=== PATIENT | male | born 1985 | race Caucasian/White ===

== ENCOUNTER → 2017-08-03 12:13 | Outpatient (CLI) | payer MEDICAID, SELFPAY | PROVIDERS: Family Provider Family Medicine Geriatric Medicine; PCP Family Medicine Geriatric Medicine; Visit Provider Family Medicine Geriatric Medicine | DX: R68.83 Chills (without fever) (principal) | CPT/HCPCS: 87633 ==

== ENCOUNTER → 2018-10-02 14:02 | Outpatient (CLI) | payer MEDICAID, SELFPAY ==
[2018-10-02 17:25] LABS: Absolute Lymphocyte Count 2.66 X10^3/ul (0.83-4.51); Basophil# 0.02 X10^3/uL; Basophil% 0.2 % (0-1); Eosinophil# 0.18 X10^3/uL; Eosinophils% 2.2 % (0-5); Hematocrit 43.3 % (40-54); Hemoglobin 14.4 g/dl (13.0-16.5); Lymphocyte # 2.66 X10^3/ul (4.0); Mean Corp Hgb Conc 33.3 g/gl (32-36); Mean Corpuscular Hgb 28.3 pg (27.0-32.0); Mean Corpuscular Volume 85.2 fL (80-94); Mean Platelet Vol. 11.9 fl (6.2-12.0); Monocyte# 0.41 X10^3/uL; Monocyte% 4.9 % (0-10); Neutrophil # 5.04 X10^3/uL (2.7-7.7); Neutrophil % 60.6 % (47-70); Platelet Count 168 K/mm3 (150-450); RBC Distribution Width CV 14.6 % (11.6-14.6); RBC Distribution Width SD 45.6 fl (35.1-43.9); Red Blood Count 5.08 M/mm3 (4.6-6.2); White Blood Count 8.3 K/mm3 (4.4-11.0)
[2018-10-02 17:32] LABS: POSITIVE COUNT NO; POSITIVE DIFFERENTIAL NO; POSITIVE MORPHOLOGY NO
[2018-10-02 17:56] LABS: ALB/GLOB Ratio 1.1 RATIO (0.9-2.4); AST(SGOT) 20 U/L (15-37); Alanine Aminotransfer ALT/SGPT 30 U/L (16-61); Alkaline Phosphatase 100 U/L (45-117); Anion Gap 15 (5-15); BUN 8 mg/dL (7-18); BUN/Creat Ratio 8.2 RATIO (10-20); Chloride 102 mmol/L (98-107); Creatinine, Serum 0.97 mg/dL (0.70-1.30); EST Glomerular Filtration Rate 95 mL/min (>60); Est Glom Filt Rate - Afr Amer 115 mL/min (>60); Globulin 3.5 g/dL (2.2-4.2); Glucose 139 mg/dL (74-106); Potassium 3.7 mmol/L (3.5-5.1); Protein, Total 7.5 g/dL (6.4-8.2); Sodium Level 140 mmol/L (136-145)
== END ==
PROVIDERS: Family Provider Family Medicine Geriatric Medicine; PCP Family Medicine Geriatric Medicine; Visit Provider Family Medicine Geriatric Medicine
DX: R53.83 Other fatigue (principal)
CPT/HCPCS: 36415; 80053; 84443; 85025

== ENCOUNTER → 2018-11-08 15:00 | Outpatient (CLI) | payer MEDICAID, SELFPAY ==
[2018-11-08 16:55] LABS: Absolute Lymphocyte Count 2.16 X10^3/uL (0.83-4.51); Absolute Neutrophil Count 5.2 X10^3/uL (2.0-7.7); Basophil# 0.02 X10^3/uL; Basophil% 0.2 % (0-1); Eosinophil# 0.15 X10^3/uL; Eosinophils% 1.9 % (0-5); Hematocrit 45.3 % (40-54); Hemoglobin 14.4 g/dL (13.0-16.5); Lymphocyte # 2.16 X10^3/ul (4.0); Lymphocyte % 26.7 % (19-41); Mean Corp Hgb Conc 31.8 g/dL (32-36); Mean Corpuscular Hgb 28.1 pg (27.0-32.0); Mean Corpuscular Volume 88.5 fL (80-94); Mean Platelet Vol. 11.9 fl (6.2-12.0); Monocyte# 0.58 X10^3/uL; Monocyte% 7.2 % (0-10); NRBC Flagged by Analyzer 0 % (0-5); Neutrophil # 5.16 X10^3/uL (2.7-7.7); Neutrophil % 63.6 % (47-70); Platelet Count 212 K/mm3 (150-450); RBC Distribution Width CV 14.3 % (11.6-14.6); Red Blood Count 5.12 M/mm3 (4.6-6.2); White Blood Count 8.1 K/mm3 (4.4-11.0)
[2018-11-08 17:26] LABS: BUN 7 mg/dL (7-18); Creatinine, Serum 1.02 mg/dL (0.70-1.30); Glucose 71 mg/dL (74-106)
[2018-11-08 17:27] LABS: Anion Gap 10 (5-15); BUN/Creat Ratio 6.9 RATIO (10-20); Calcium,Total 9.4 mg/dL (8.5-10.1); Chloride 102 mmol/L (98-107); EST Glomerular Filtration Rate 90 mL/min (>60); Est Glom Filt Rate - Afr Amer 109 mL/min (>60); Potassium 3.6 mmol/L (3.5-5.1); Sodium Level 140 mmol/L (136-145); Thyroid Stim Hormone (TSH) 0.74 uIU/mL (0.358-3.74)
== END ==
PROVIDERS: Family Provider Family Medicine Geriatric Medicine; PCP Family Medicine Geriatric Medicine; Visit Provider Family Medicine Geriatric Medicine
DX: F05 Delirium due to known physiological condition (principal)
CPT/HCPCS: 36415; 80048; 84443; 85025

== ENCOUNTER → 2019-04-11 15:26 | Outpatient (CLI) | payer MEDICAID, SELFPAY ==
[2019-04-11 17:23] LABS: Absolute Lymphocyte Count 2.26 X10^3/uL (0.83-4.51); Absolute Neutrophil Count 4.3 X10^3/uL (2.0-7.7); Basophil# 0.04 X10^3/uL; Basophil% 0.5 % (0-1); Eosinophil# 0.21 X10^3/uL; Eosinophils% 2.9 % (0-5); Hematocrit 46.6 % (40-54); Hemoglobin 15.3 g/dL (13.0-16.5); Lymphocyte # 2.26 X10^3/ul (4.0); Lymphocyte % 30.9 % (19-41); Mean Corp Hgb Conc 32.8 g/dL (32-36); Mean Corpuscular Hgb 30.5 pg (27.0-32.0); Mean Platelet Vol. 11.6 fl (6.2-12.0); Monocyte# 0.54 X10^3/uL; Monocyte% 7.4 % (0-10); NRBC Flagged by Analyzer 0 % (0-5); Neutrophil # 4.26 X10^3/uL (2.7-7.7); Neutrophil % 58.2 % (47-70); Platelet Count 200 K/mm3 (150-450); RBC Distribution Width CV 12.5 % (11.6-14.6); RBC Distribution Width SD 42.6 fl (35.1-43.9); Red Blood Count 5.01 M/mm3 (4.6-6.2); White Blood Count 7.3 K/mm3 (4.4-11.0)
[2019-04-11 18:01] LABS: ALB/GLOB Ratio 1.2 RATIO (0.9-2.4); AST(SGOT) 13 U/L (15-37); Alanine Aminotransfer ALT/SGPT 23 U/L (16-61); Albumin, Serum 4.3 g/dL (3.2-5.0); Alkaline Phosphatase 99 U/L (45-117); Anion Gap 5 (5-15); BUN 9 mg/dL (7-18); BUN/Creat Ratio 8.6 RATIO (10-20); Calcium,Total 9.1 mg/dL (8.5-10.1); Chloride 104 mmol/L (98-107); Creatinine, Serum 1.05 mg/dL (0.70-1.30); EST Glomerular Filtration Rate 87 mL/min (>60); Est Glom Filt Rate - Afr Amer 105 mL/min (>60); Globulin 3.6 g/dL (2.2-4.2); Glucose 81 mg/dL (74-106); Potassium 4.3 mmol/L (3.5-5.1); Protein, Total 7.9 g/dL (6.4-8.2); Sodium Level 136 mmol/L (136-145); Thyroid Stim Hormone (TSH) 1.51 uIU/mL (0.358-3.74)
== END ==
PROVIDERS: Family Provider Family Medicine Geriatric Medicine; PCP Family Medicine Geriatric Medicine; Visit Provider Family Medicine Geriatric Medicine
DX: R53.83 Other fatigue (principal)
CPT/HCPCS: 36415; 80053; 80178; 84443; 85025

== ENCOUNTER → 2019-10-10 14:41 | Outpatient (CLI) | payer MEDICAID, SELFPAY ==
[2019-10-10 16:11] LABS: Absolute Lymphocyte Count 1.97 X10^3/uL (0.83-4.51); Absolute Neutrophil Count 4.2 X10^3/uL (2.0-7.7); Basophil# 0.04 X10^3/uL; Basophil% 0.6 % (0-1); Eosinophil# 0.28 X10^3/uL; Eosinophils% 3.9 % (0-5); Hematocrit 45.1 % (40-54); Hemoglobin 14.5 g/dL (13.0-16.5); Lymphocyte # 1.97 X10^3/ul (4.0); Lymphocyte % 27.4 % (19-41); Mean Corp Hgb Conc 32.2 g/dL (32-36); Mean Corpuscular Hgb 30.4 pg (27.0-32.0); Mean Corpuscular Volume 94.5 fL (80-94); Mean Platelet Vol. 11.1 fl (6.2-12.0); Monocyte# 0.64 X10^3/uL; Monocyte% 8.9 % (0-10); NRBC Flagged by Analyzer 0 % (0-5); Neutrophil # 4.23 X10^3/uL (2.7-7.7); Neutrophil % 58.9 % (47-70); Platelet Count 196 K/mm3 (150-450); RBC Distribution Width CV 12.8 % (11.6-14.6); RBC Distribution Width SD 44.1 fl (35.1-43.9); Red Blood Count 4.77 M/mm3 (4.6-6.2); White Blood Count 7.2 K/mm3 (4.4-11.0)
[2019-10-10 16:54] LABS: AST(SGOT) 17 U/L (15-37); Alanine Aminotransfer ALT/SGPT 38 U/L (16-61); Albumin, Serum 3.7 g/dL (3.2-5.0); Alkaline Phosphatase 90 U/L (45-117); Anion Gap 6 (5-15); BUN 11 mg/dL (7-18); BUN/Creat Ratio 11.6 RATIO (10-20); Calcium,Total 8.6 mg/dL (8.5-10.1); Chloride 104 mmol/L (98-107); Creatinine, Serum 0.95 mg/dL (0.70-1.30); EST Glomerular Filtration Rate 97 mL/min (>60); Est Glom Filt Rate - Afr Amer 118 mL/min (>60); Globulin 3.7 g/dL (2.2-4.2); Glucose 113 mg/dL (74-106); Protein, Total 7.4 g/dL (6.4-8.2); Sodium Level 137 mmol/L (136-145)
== END ==
PROVIDERS: PCP Family Medicine Geriatric Medicine; Visit Provider Family Medicine Geriatric Medicine
DX: R53.83 Other fatigue (principal); F31.9 Bipolar disorder, unspecified
CPT/HCPCS: 36415; 80053; 80178; 84443; 85025

== ENCOUNTER → 2020-04-28 05:01 | Outpatient (CLI) | payer MEDICAID, SELFPAY ==
[2020-04-28 10:35] LABS: Absolute Lymphocyte Count 2.48 X10^3/uL (0.83-4.51); Absolute Neutrophil Count 5.5 X10^3/uL (2.0-7.7); Basophil# 0.04 X10^3/uL; Basophil% 0.4 % (0-1); Eosinophil# 0.39 X10^3/uL; Eosinophils% 4.3 % (0-5); Hematocrit 47.8 % (40-54); Hemoglobin 15.6 g/dL (13.0-16.5); Lymphocyte # 2.48 X10^3/ul (4.0); Lymphocyte % 27.3 % (19-41); Mean Corp Hgb Conc 32.6 g/dL (32-36); Mean Corpuscular Hgb 29.9 pg (27.0-32.0); Mean Corpuscular Volume 91.6 fL (80-94); Mean Platelet Vol. 11.4 fl (6.2-12.0); Monocyte# 0.59 X10^3/uL; Monocyte% 6.5 % (0-10); NRBC Flagged by Analyzer 0 % (0-5); Neutrophil # 5.53 X10^3/uL (2.7-7.7); Neutrophil % 61.1 % (47-70); Platelet Count 237 K/mm3 (150-450); RBC Distribution Width CV 13.2 % (11.6-14.6); RBC Distribution Width SD 44.9 fl (35.1-43.9); Red Blood Count 5.22 M/mm3 (4.6-6.2); White Blood Count 9.1 K/mm3 (4.4-11.0)
[2020-04-28 11:06] LABS: Vitamin D,25 Hydroxy 22.4 ng/mL
[2020-04-28 11:18] LABS: ALB/GLOB Ratio 1.1 RATIO (0.9-2.4); AST(SGOT) 16 U/L (15-37); Alanine Aminotransfer ALT/SGPT 36 U/L (16-61); Alkaline Phosphatase 107 U/L (45-117); Anion Gap 4 (5-15); BUN 6 mg/dL (7-18); BUN/Creat Ratio 6.2 RATIO (10-20); Calcium,Total 9.4 mg/dL (8.5-10.1); Chloride 109 mmol/L (98-107); Cholesterol 325 mg/dL (200); Creatinine, Serum 0.97 mg/dL (0.70-1.30); EST Glomerular Filtration Rate 95 mL/min (>60); Est Glom Filt Rate - Afr Amer 115 mL/min (>60); Globulin 3.8 g/dL (2.2-4.2); Glucose 118 mg/dL (74-106); High Density Lipoprotein 40 mg/dL; Potassium 4.2 mmol/L (3.5-5.1); Protein, Total 7.8 g/dL (6.4-8.2); Sodium Level 138 mmol/L (136-145); Thyroid Stim Hormone (TSH) 1.31 uIU/mL (0.358-3.74); Triglycerides 516 mg/dL
== END ==
PROVIDERS: PCP Family Medicine Geriatric Medicine; Visit Provider Family Medicine Geriatric Medicine
DX: E55.9 Vitamin D deficiency, unspecified (principal); E78.5 Hyperlipidemia, unspecified; R53.83 Other fatigue
CPT/HCPCS: 36415; 80053; 80061; 82306; 84443; 85025

== ENCOUNTER → 2020-10-15 10:10 | Outpatient (CLI) | payer MEDICAID, SELFPAY ==
[2020-10-15 12:27] LABS: Absolute Lymphocyte Count 2.71 X10^3/uL (0.83-4.51); Basophil# 0.05 X10^3/uL; Basophil% 0.4 % (0-1); Eosinophil# 0.25 X10^3/uL; Eosinophils% 1.8 % (0-5); Hematocrit 49.2 % (40-54); Hemoglobin 15.9 g/dL (13.0-16.5); Lymphocyte # 2.71 X10^3/ul (0.83-4.51); Lymphocyte % 19.5 % (19-41); Mean Corp Hgb Conc 32.3 g/dL (32-36); Mean Corpuscular Hgb 29.9 pg (27.0-32.0); Mean Corpuscular Volume 92.7 fL (80-94); Mean Platelet Vol. 11.6 fl (6.2-12.0); Monocyte# 0.83 X10^3/uL; NRBC Flagged by Analyzer 0 % (0-5); Neutrophil % 71.9 % (47-70); Platelet Count 219 K/mm3 (150-450); RBC Distribution Width CV 13.1 % (11.6-14.6); RBC Distribution Width SD 44.9 fl (35.1-43.9); Red Blood Count 5.31 M/mm3 (4.6-6.2); White Blood Count 13.9 K/mm3 (4.4-11.0)
[2020-10-15 12:45] LABS: ALB/GLOB Ratio 1.1 RATIO (0.9-2.4); AST(SGOT) 13 U/L (15-37); Alanine Aminotransfer ALT/SGPT 24 U/L (16-61); Albumin, Serum 4.2 g/dL (3.2-5.0); Alkaline Phosphatase 116 U/L (45-117); Anion Gap 2 (5-15); BUN 8 mg/dL (7-18); BUN/Creat Ratio 8.2 RATIO (10-20); Calcium,Total 9.7 mg/dL (8.5-10.1); Chloride 105 mmol/L (98-107); Creatinine, Serum 0.98 mg/dL (0.70-1.30); EST Glomerular Filtration Rate 93 mL/min (>60); Est Glom Filt Rate - Afr Amer 113 mL/min (>60); Globulin 3.7 g/dL (2.2-4.2); Glucose 112 mg/dL (74-106); Potassium 4.5 mmol/L (3.5-5.1); Protein, Total 7.9 g/dL (6.4-8.2); Sodium Level 135 mmol/L (136-145); Thyroid Stim Hormone (TSH) 1.61 uIU/mL (0.358-3.74)
== END ==
PROVIDERS: PCP Family Medicine Geriatric Medicine; Visit Provider Family Medicine Geriatric Medicine
DX: R53.83 Other fatigue (principal)
CPT/HCPCS: 36415; 80053; 84443; 85025

== ENCOUNTER 2021-05-04 10:14 | Outpatient (CLI) | payer MEDICAID, SELFPAY ==
--- NOTE | 2021-05-04 12:03 | RAD_ITS ---
STUDY: X-RAY - UNILATERAL RIBS ( LEFT ) WITH CHEST REASON FOR EXAM: Male, 35 years old. RIB PAIN TECHNIQUE - RIBS: 4 view(s) of the ribs. TECHNIQUE - CHEST: COMPARISON: None. FINDINGS - RIBS: Normal visualized ribs without a demonstrated fracture. FINDINGS - CHEST: Scattered calcified granulomas. There is no demonstrated pleural abnormality. Normal size heart. Normal mediastinum and jose. Normal visualized pulmonary arteries. Normal visualized aortic arch and descending thoracic aorta. There is a mild dextroscoliosis of the thoracic spine. Normal visualized ribs, clavicles, and shoulders. There is no demonstrated abnormality of the visualized soft tissue structures of the upper abdomen. RAD/Ribs Uni Min 3V w/PA Chest IMPRESSION: RIBS: Normal x-ray examination of the ribs. CHEST: Normal x-ray examination of the chest. Electronically Signed: Herminio Montalvo MD at 15:16 EST ,
[2021-05-04 12:30] LABS: Absolute Lymphocyte Count 2.65 X10^3/uL (0.83-4.51); Absolute Neutrophil Count 4.4 X10^3/uL (2.0-7.7); Basophil# 0.04 X10^3/uL; Basophil% 0.5 % (0-1); Eosinophil# 0.28 X10^3/uL; Eosinophils% 3.5 % (0-5); Hematocrit 45.7 % (40-54); Hemoglobin 14.7 g/dL (13.0-16.5); Lymphocyte # 2.65 X10^3/ul (0.83-4.51); Lymphocyte % 33.1 % (19-41); Mean Corp Hgb Conc 32.2 g/dL (32-36); Mean Corpuscular Hgb 30.1 pg (27.0-32.0); Mean Corpuscular Volume 93.5 fL (80-94); Mean Platelet Vol. 11.5 fl (6.2-12.0); Monocyte# 0.65 X10^3/uL; Monocyte% 8.1 % (0-10); NRBC Flagged by Analyzer 0 % (0-5); Neutrophil # 4.37 X10^3/uL (2.7-7.7); Neutrophil % 54.6 % (47-70); Platelet Count 212 K/mm3 (150-450); RBC Distribution Width CV 12.9 % (11.6-14.6); RBC Distribution Width SD 44.5 fl (35.1-43.9); Red Blood Count 4.89 M/mm3 (4.6-6.2)
[2021-05-04 13:17] LABS: ALB/GLOB Ratio 1.2 RATIO (0.9-2.4); AST(SGOT) 12 U/L (15-37); Alanine Aminotransfer ALT/SGPT 25 U/L (16-61); Albumin, Serum 4.3 g/dL (3.2-5.0); Alkaline Phosphatase 99 U/L (45-117); Anion Gap 7 (5-15); BUN 12 mg/dL (7-18); Calcium,Total 9.9 mg/dL (8.5-10.1); Chloride 106 mmol/L (98-107); EST Glomerular Filtration Rate 91 mL/min (>60); Est Glom Filt Rate - Afr Amer 110 mL/min (>60); Globulin 3.7 g/dL (2.2-4.2); Glucose 91 mg/dL (74-106); Sodium Level 137 mmol/L (136-145); Thyroid Stim Hormone (TSH) 2.14 uIU/mL (0.358-3.74)
== END 2021-05-04 23:59 | disposition short-term general hospital (02) ==
PROVIDERS: PCP Family Medicine Geriatric Medicine; Visit Provider Family Medicine Geriatric Medicine
DX: R07.81 Pleurodynia (principal); R53.83 Other fatigue
CPT/HCPCS: 36415; 71101; 80053; 84443; 85025

== ENCOUNTER → 2021-10-19 | Outpatient (CLI) | payer MEDICAID, SELFPAY ==
[2021-10-19 12:29] LABS: Absolute Lymphocyte Count 2.86 X10^3/uL (0.83-4.51); Absolute Neutrophil Count 5.9 X10^3/uL (2.0-7.7); Basophil# 0.04 X10^3/uL; Basophil% 0.4 % (0-1); Eosinophil# 0.32 X10^3/uL; Eosinophils% 3.2 % (0-5); Hematocrit 48.2 % (40-54); Hemoglobin 15.6 g/dL (13.0-16.5); Lymphocyte # 2.86 X10^3/ul (0.83-4.51); Lymphocyte % 28.9 % (19-41); Mean Corp Hgb Conc 32.4 g/dL (32-36); Mean Corpuscular Hgb 30.4 pg (27.0-32.0); Mean Corpuscular Volume 93.8 fL (80-94); Mean Platelet Vol. 11.3 fl (6.2-12.0); Monocyte# 0.69 X10^3/uL; NRBC Flagged by Analyzer 0 % (0-5); Neutrophil # 5.94 X10^3/uL (2.7-7.7); Neutrophil % 60.1 % (47-70); Platelet Count 194 K/mm3 (150-450); RBC Distribution Width CV 12.8 % (11.6-14.6); RBC Distribution Width SD 44.4 fl (35.1-43.9); Red Blood Count 5.14 M/mm3 (4.6-6.2); White Blood Count 9.9 K/mm3 (4.4-11.0)
[2021-10-19 13:39] LABS: ALB/GLOB Ratio 1.1 RATIO (0.9-2.4); AST(SGOT) 16 U/L (15-37); Alanine Aminotransfer ALT/SGPT 33 U/L (16-61); Alkaline Phosphatase 102 U/L (45-117); Anion Gap 5 (5-15); BUN 9 mg/dL (7-18); Calcium,Total 9.8 mg/dL (8.5-10.1); Chloride 105 mmol/L (98-107); EST Glomerular Filtration Rate 91 mL/min (>60); Est Glom Filt Rate - Afr Amer 110 mL/min (>60); Globulin 3.5 g/dL (2.2-4.2); Glucose 103 mg/dL (74-106); Potassium 4.8 mmol/L (3.5-5.1); Protein, Total 7.5 g/dL (6.4-8.2); Sodium Level 137 mmol/L (136-145); Thyroid Stim Hormone (TSH) 2.16 uIU/mL (0.358-3.74)
== END | disposition home or self-care (01) ==
LOC: POLAB3 09:56
PROVIDERS: PCP Family Medicine Geriatric Medicine; Visit Provider Family Medicine Geriatric Medicine
DX: R53.83 Other fatigue (principal)
CPT/HCPCS: 36415; 80053; 84443; 85025

== ENCOUNTER → 2022-05-03 | Outpatient (CLI) | payer MEDICAID, SELFPAY ==
[2022-05-03 13:20] LABS: Absolute Lymphocyte Count 1.16 X10^3/uL (0.83-4.51); Absolute Neutrophil Count 5.6 X10^3/uL (2.0-7.7); Basophil# 0.03 X10^3/uL; Basophil% 0.4 % (0-1); Eosinophil# 0.09 X10^3/uL; Eosinophils% 1.2 % (0-5); Hematocrit 49.2 % (40-54); Hemoglobin 16.2 g/dL (13.0-16.5); Lymphocyte # 1.16 X10^3/ul (0.83-4.51); Mean Corp Hgb Conc 32.9 g/dL (32-36); Mean Corpuscular Hgb 29.7 pg (27.0-32.0); Mean Corpuscular Volume 90.1 fL (80-94); Mean Platelet Vol. 12.1 fl (6.2-12.0); Monocyte% 5.5 % (0-10); NRBC Flagged by Analyzer 0 % (0-5); Neutrophil # 5.56 X10^3/uL (2.7-7.7); Neutrophil % 76.5 % (47-70); Platelet Count 186 K/mm3 (150-450); RBC Distribution Width SD 42.5 fl (35.1-43.9); Red Blood Count 5.46 M/mm3 (4.6-6.2); White Blood Count 7.3 K/mm3 (4.4-11.0)
[2022-05-03 13:43] LABS: ALB/GLOB Ratio 1.2 RATIO (0.9-2.4); AST(SGOT) 13 U/L (15-37); Alanine Aminotransfer ALT/SGPT 18 U/L (16-61); Albumin, Serum 4.3 g/dL (3.2-5.0); Alkaline Phosphatase 100 U/L (45-117); Anion Gap 7 (5-15); BUN 11 mg/dL (7-18); Calcium,Total 9.6 mg/dL (8.5-10.1); Chloride 105 mmol/L (98-107); Creatinine, Serum 0.92 mg/dL (0.70-1.30); EST Glomerular Filtration Rate 100 mL/min (>60); Est Glom Filt Rate - Afr Amer 121 mL/min (>60); Globulin 3.5 g/dL (2.2-4.2); Glucose 123 mg/dL (74-106); Potassium 4.1 mmol/L (3.5-5.1); Protein, Total 7.8 g/dL (6.4-8.2); Sodium Level 135 mmol/L (136-145); Thyroid Stim Hormone (TSH) 3.19 uIU/mL (0.358-3.74)
== END | disposition home or self-care (01) ==
LOC: POLAB3 09:29
PROVIDERS: PCP Family Medicine Geriatric Medicine; Visit Provider Family Medicine Geriatric Medicine
DX: R53.83 Other fatigue (principal)
CPT/HCPCS: 36415; 80053; 84443; 85025

== ENCOUNTER → 2022-11-02 | Outpatient (CLI) | payer MEDICAID, SELFPAY ==
[2022-11-02 12:18] LABS: Absolute Lymphocyte Count 2.33 X10^3/uL (0.83-4.51); Absolute Neutrophil Count 4.1 X10^3/uL (2.0-7.7); Basophil# 0.05 X10^3/uL; Basophil% 0.7 % (0-1); Eosinophil# 0.25 X10^3/uL; Eosinophils% 3.4 % (0-5); Hematocrit 46.3 % (40-54); Hemoglobin 14.9 g/dL (13.0-16.5); Lymphocyte # 2.33 X10^3/ul (0.83-4.51); Lymphocyte % 31.6 % (19-41); Mean Corp Hgb Conc 32.2 g/dL (32-36); Mean Corpuscular Hgb 29.9 pg (27.0-32.0); Mean Corpuscular Volume 92.8 fL (80-94); Mean Platelet Vol. 11.9 fl (6.2-12.0); Monocyte# 0.63 X10^3/uL; Monocyte% 8.5 % (0-10); NRBC Flagged by Analyzer 0 % (0-5); Neutrophil # 4.06 X10^3/uL (2.7-7.7); Neutrophil % 55.1 % (47-70); Platelet Count 193 K/mm3 (150-450); RBC Distribution Width CV 12.9 % (11.6-14.6); RBC Distribution Width SD 43.8 fl (35.1-43.9); Red Blood Count 4.99 M/mm3 (4.6-6.2); White Blood Count 7.4 K/mm3 (4.4-11.0)
[2022-11-02 12:45] LABS: ALB/GLOB Ratio 1.1 RATIO (0.9-2.4); AST(SGOT) 8 U/L (15-37); Alanine Aminotransfer ALT/SGPT 18 U/L (16-61); Albumin, Serum 3.7 g/dL (3.2-5.0); Alkaline Phosphatase 99 U/L (45-117); Anion Gap 5 (5-15); BUN 7 mg/dL (7-18); Chloride 109 mmol/L (98-107); Cholesterol 240 mg/dL (200); EST Glomerular Filtration Rate 90 mL/min (>60); Est Glom Filt Rate - Afr Amer 109 mL/min (>60); Globulin 3.3 g/dL (2.2-4.2); Glucose 118 mg/dL (74-106); High Density Lipoprotein 45 mg/dL; Sodium Level 138 mmol/L (136-145); Thyroid Stim Hormone (TSH) 1.35 uIU/mL (0.358-3.74); Triglycerides 287 mg/dL; Very Low Density Lipoprotein 57 mg/dL (5-40)
[2022-11-02 13:12] LABS: Hepatitis C Antibody Non-Reactive (Nonreactive)
== END | disposition home or self-care (01) ==
PROVIDERS: PCP Family Medicine Geriatric Medicine; Visit Provider Family Medicine Geriatric Medicine
DX: R53.83 Other fatigue (principal)
CPT/HCPCS: 36415; 80053; 80061; 84443; 85025; 86803

== ENCOUNTER → 2023-04-13 | Outpatient (CLI) | payer MEDICAID, SELFPAY ==
--- OUTSIDE RECORDS SUMMARY | 2023-04-13 09:13 | XMS RPT_ITS | CCD ---
Author Name Unknown Address [address] [place] [address] Organization [facility] Care Team Providers Care Shipper/Receiver Name Role Phone Neisha Novoa Unavailable Unavailable DENI COLE (MEL) Unavailable Unavai Neisha Nelson Unavailable Unavailable Medications Completed/Discontinued Medications Medication Drug Class(es) Dates Sig (Normalized) Sig (Original) AMOXICILLIN-POT CLAVULANATE (2 sources) Penicillin-class Antibacterial Start: 09-01-2016 AUGMENTIN 875-125 MG TABS 1 tablet twice daily AMOXICILLIN-POT CLAVULANATE [id number] Jose L HUNTER Problems Active Problems Problem Classification Problem Date Documented Da te Episodic/Chronic Other lower respiratory disease (1 source) Cough; Translations: [Cough] Onset: 02-15-2018 Episodic Other lower respiratory disease (1 source) Shortness of breath; Translations: [Shortness of breath] Onset: 02-15-2018 Episodic Other screening for suspected conditions (not mental disorders or infectious disease) (1 source) No current problems or disability 09-01-2016 Past or Other Problems Problem Classification Problem Date Documented Da te Episodic/Chronic Chronic obstructive pulmonary disease and bronchiectasis (1 source) Bronchitis; Translations: [Bronchitis, not specified as acute or chronic] Onset: 09-01-2016 09-01-2016 Episodic Other lower respiratory disease (1 source) Cough; Translations: [Cough] Onset: 09-01-2016 09-01-2016 Episodic Results Test Name Value Interpretation Reference Range Facil ity Vital Signs Date Time Vital Sign Value Performing Clinician Faci lity 09-01-2016 10:04-0400 BMI (Body Mass Index) 34.31 kg/m2 Neisha [facility] Work Phone: 09-01-2016 10:04-0400 Body Temperature 99.5 [degF] Neisha [facility] Work Phone: 09-01-2016 10:04-0400 BP Diastolic 84 mm[Hg] Neisha Novoa [facility] Work Phone: 09-01-2016 10:04-0400 BP Systolic 122 mm[Hg] Neisha Novoa [facility] Work Phone: 09-01-2016 10:04-0400 Height 167.64 cm Neisha [facility] Work Phone: 09-01-2016 10:04-0400 Pulse (Heart Rate) 87 /min Neisha Novoa [facility] Work Phone: 09-01-2016 10:04-0400 Pulse Oximetry 97 % Neisha Novoa [facility] Work Phone: 09-01-2016 10:04-0400 Respiratory Rate 16 /min Neisha [facility] Work Phone: 09-01-2016 10:04-0400 Weight 96.44 kg Neisha Novoa [facility] Work Phone: Encounters Encounter Date Encounter Type Care Provider Facility Start: 02-15-2018 End: 02-16-2018 Patient encounter procedure DENI COLE [facility] Procedures Date Procedure Procedure Detail Performing Clinician Start: 09-01-2016 End: 09-01-2016 Albuterol Neb Lela'n Unit Dose Jose L HUNTER Work Phone: Plan of Treatment Date Care Activity Detail Author Start: 09-01-2016 End: 09-01-2016 Appointment Appointment [facility] Work Phone: Start: 09-01-2016 End: 09-01-2016 Appointment Appointment [facility] Work Phone: Summary Purpose Family History No Family History Records Found Advance Directives No Advanced Directives Records Found Additional Source Comments (unrecognized sect ion and content) No Status Records Found INFORMATION SOURCE (unrecogn ized section and content) FOR RECORDS PERTAINING TO PATIENTS WHO ARE OR HAVE BEEN ENROLLED IN A CHEMICAL DEPENDENCY/SUBSTANCEABUSE PROGRAM, SOME INFORMATION MAY BE OMITTED. This clinical summary was aggregated from multiple sources. Caution should be exercised in using it in the provision of clinical care. This summary normalizes information from multiple sources, and as a consequence, information in this document may materially change the coding, format and clinical context of patient data. In addition, data may be omitted in some cases. CLINICAL DECISIONS SHOULD BE BASED ON THE PRIMARY CLINICAL RECORDS. [facility] [employer] [facility]. provides no warranty or guarantee of the accuracy or completeness of information in this document.
== END | disposition home or self-care (01) ==
PROVIDERS: PCP Family Medicine Geriatric Medicine; Referring Provider Student in an Organized Health Care Education/Training Program; Visit Provider Student in an Organized Health Care Education/Training Program
DX: F25.9 Schizoaffective disorder, unspecified (principal); Z51.81 Encounter for therapeutic drug level monitoring
CPT/HCPCS: 36415; 80178

== ENCOUNTER → 2023-05-04 | Outpatient (CLI) | payer MEDICAID, SELFPAY ==
--- OUTSIDE RECORDS SUMMARY | 2023-05-04 09:41 | XMS RPT_ITS | CCD ---
Author Name Unknown Address [address] [place] [address] Organization [facility] Care Team Providers Care Iron Carrier Name Role Phone Neisha Novoa Unavailable Unavailable DENI COLE (MEL) Unavailable Unavai Neisha Nelson Unavailable Unavailable Medications Completed/Discontinued Medications Medication Drug Class(es) Dates Sig (Normalized) Sig (Original) AMOXICILLIN-POT CLAVULANATE (2 sources) Penicillin-class Antibacterial Start: 09-01-2016 AUGMENTIN 875-125 MG TABS 1 tablet twice daily AMOXICILLIN-POT CLAVULANATE [id number] Jose L HUNTER Problems Active Problems Problem [...] 10:04-0400 BP Diastolic 84 mm[Hg] Neisha Novoa [facility] Work Phone: 09-01-2016 10:04-0400 BP Systolic 122 mm[Hg] Neisha Novoa [facility] Work Phone: 09-01-2016 10:04-0400 Height 167.64 cm Neisha [facility] Work Phone: 09-01-2016 10:04-0400 Pulse (Heart Rate) 87 /min Neisha Novoa [facility] Work Phone: 09-01-2016 10:04-0400 Pulse Oximetry 97 % Neisha Novoa [facility] Work Phone: 09-01-2016 10:04-0400 Respiratory Rate 16 /min [facility] Work Phone: 09-01-2016 10:04-0400 Weight 96.44 kg Neisha Novoa [facility] Work Phone: Encounters Encounter Date Encounter Type Care Provider Facility Start: 02-15-2018 End: 02-16-2018 Patient encounter procedure DENI COLE [facility] Procedures Date Procedure Procedure Detail Performing Clinician Start: 09-01-2016 End: 09-01-2016 Albuterol Neb Lela'n Unit Dose Jose L HUNTER Work Phone: Plan of Treatment Date Care Activity Detail Author Start: 09-01-2016 End: 09-01-2016 Appointment Appointment [facility] Work Phone: Start: 09-01-2016 End: 09-01-2016 Appointment Appointment [facility] Work Phone: Summary Purpose [...] BE BASED ON THE PRIMARY CLINICAL RECORDS. [facility]. provides no warranty or guarantee of the accuracy or completeness of information in this document.
[2023-05-04 10:09] LABS: Absolute Neutrophil Count 6.7 X10^3/uL (2.0-7.7); Basophil# 0.07 X10^3/uL; Basophil% 0.7 % (0-1); Eosinophil# 0.28 X10^3/uL; Eosinophils% 2.8 % (0-5); Hemoglobin 14.5 g/dL (13.0-16.5); Lymphocyte % 23.7 % (19-41); Mean Corpuscular Hgb 29.6 pg (27.0-32.0); Mean Corpuscular Volume 89.8 fL (80-94); Mean Platelet Vol. 11.3 fl (6.2-12.0); Monocyte# 0.67 X10^3/uL; Monocyte% 6.6 % (0-10); NRBC Flagged by Analyzer 0 % (0-5); Neutrophil # 6.67 X10^3/uL (2.7-7.7); Neutrophil % 65.8 % (47-70); Platelet Count 183 K/mm3 (150-450); RBC Distribution Width CV 13.1 % (11.6-14.6); RBC Distribution Width SD 42.8 fl (35.1-43.9); White Blood Count 10.1 K/mm3 (4.4-11.0)
[2023-05-04 10:36] LABS: AST(SGOT) 17 U/L (15-37); Alanine Aminotransfer ALT/SGPT 28 U/L (16-61); Albumin, Serum 3.6 g/dL (3.2-5.0); Alkaline Phosphatase 106 U/L (45-117); Anion Gap 4 (5-15); BUN 10 mg/dL (7-18); BUN/Creat Ratio 8.8 RATIO (10-20); Calcium,Total 9.2 mg/dL (8.5-10.1); Chloride 105 mmol/L (98-107); Cholesterol 267 mg/dL (200); Creatinine, Serum 1.14 mg/dL (0.70-1.30); EST Glomerular Filtration Rate 77 mL/min (>60); Est Glom Filt Rate - Afr Amer 93 mL/min (>60); Globulin 3.5 g/dL (2.2-4.2); Glucose 217 mg/dL (74-106); High Density Lipoprotein 40 mg/dL; Potassium 3.7 mmol/L (3.5-5.1); Protein, Total 7.1 g/dL (6.4-8.2); Sodium Level 135 mmol/L (136-145); Thyroid Stim Hormone (TSH) 1.67 uIU/mL (0.358-3.74); Triglycerides 508 mg/dL
== END | disposition home or self-care (01) ==
LOC: POLAB3 09:13
PROVIDERS: PCP Family Medicine Geriatric Medicine; Visit Provider Family Medicine Geriatric Medicine
DX: R53.83 Other fatigue (principal); E78.5 Hyperlipidemia, unspecified
CPT/HCPCS: 36415; 80053; 80061; 84443; 85025

== ENCOUNTER 2023-10-14 21:22 | Emergency (ER) | payer MEDICAID, SELFPAY ==
[2023-10-14 21:23] VITALS: BP 124/73; PULSE 80; RESP 14; TEMP 35.8; O2SAT 98; BMI 35.3
--- NOTE | 2023-10-14 21:57 | EDS_ITS ---
HPI History of Present Illness Chief Complaint: Abscess [facility] Medical History Arthritis Medication monitoring encounter Schizoaffective disorder Home Medications ?Medication ?Instructions ?Recorded ?Last Taken ?Type ascorbic acid (vitamin C) 500 mg PO 01/18/23 Unknown History tablet clonidine HCl 0.1 mg tablet mg PO DAILY 01/18/23 Unknown History clonidine HCl 0.2 mg tablet mg PO BID 01/18/23 Unknown History docusate sodium 100 mg capsule mg PO 01/18/23 Unknown History famotidine 40 mg tablet 40 mg PO DAILY 01/18/23 Unknown History fluticasone propionate 50 intranasal 01/18/23 Unknown History mcg/actuation nasal spray,suspension gabapentin 300 mg capsule mg PO 01/18/23 Unknown History loratadine 10 mg tablet mg PO 01/18/23 Unknown History multivitamin with folic acid 400 tab PO 01/18/23 Unknown History mcg tablet (Daily-Alfonzo (with folic acid)) omega-3 fatty acids 1,000 mg mg PO 01/18/23 Unknown History capsule omega3-dha 200 mg-epa 300 mg-othr cap PO DAILY 01/18/23 Unknown History om3 100 mg-fish oil 1,000 mg capsule ([place]) omeprazole 20 mg capsule,delayed mg PO 01/18/23 Unknown History release quetiapine 50 mg tablet 50 mg PO QAM #30 tabs 05/15/23 Unknown Rx cariprazine 3 mg capsule 3 mg PO DAILY #30 caps 07/31/23 Unknown Rx quetiapine 100 mg tablet 100 mg PO QHS 30 days #30 tabs 07/31/23 Unknown Rx lamotrigine 200 mg tablet 200 mg PO DAILY 30 days #30 tabs 09/25/23 Unknown Rx lithium carbonate 300 mg capsule See Rx Instructions .Route 09/25/23 Unknown Rx .COMPLEX #90 caps paroxetine HCl 40 mg tablet 40 mg PO QHS #30 tabs 09/25/23 Unknown Rx doxycycline hyclate 100 mg capsule 100 mg PO BID #14 caps 10/14/23 Unknown Rx doxycycline monohydrate 100 mg 100 mg PO BID #14 CAPSULES 10/14/23 Unknown Rx capsule Allergy/AdvReac Type Severity Reaction Status Date / Time coconut Allergy Mild PT UNSURE Verified 10/14/23 21:26 OF REACTION varenicline (From Chantix) Allergy Mild PT UNSURE Verified 10/14/23 21:26 OF REACTION Social History Smoking Status: Light Smoker (<10/day) alcohol intake: never substance use type: does not use EXAM Physical Exam Const Vital Signs: 10/14/23 21:23 Temperature 96.4 F L Temperature Source Temporal Pulse Rate 80 Respiratory Rate 14 Blood Pressure 124/73 H Blood Pressure Mean 90 Pulse Ox 98 Oxygen Delivery Method Room Air [facility] MDM MDM Narrative Medical decision making narrative: HISTORY OF PRESENT ILLNESS: 38-year-old male presents with concern for abscess. Notes he noticed an area of red redness today along the mid shaft of his penis on the left side. He notes he does shave his pubic area frequently. Denies history of diabetes. Denies vomiting or fever. He is not sexually active. His last sexual intercourse was more than 1 year ago. He is not concerned with STDs. He denies any painful u rination, penile discharge. Any testicular tenderness. Any abdominal pain. REVIEW OF SYSTEMS: Pertinent positives: Abscess Pertinent negatives: Fever, vomiting, PHYSICAL EXAM: Nursing triage notes reviewed, Vital signs reviewed Constitutional: please see mdm Lungs: Clear to auscultation, No wheezing or rales. No increased work of breathing, no conversational dyspnea, no accessory muscle use, no nasal flaring. No respiratory distress noted Heart: Regular rate and rhythm, No murmurs, No rubs and No gallops, 2+ distal pulses (radial, femoral, posterior tibial) in all extremities Abdomen: Soft, there is no tenderness, rigidity, rebound or guarding, no obvious peritoneal signs, no palpable pulsatile abdominal masses, no auscultated abdominal bruit : No CVAT, normal-appearing genitalia, 1 lesion as noted below, Extremities: No edema Skin: Small area approximate 1 x 1 mm very red swollen area that is consistent with likely folliculitis, it is painful to touch, it is blanchable. There is no crepitus or bullae. There is no fluctuance or induration. No obvious abscess. There is no testicular tenderness. MEDICAL DECISION MAKING: Chief Complaint: Left groin abscess External records reviewed: No recent ED visits Factors affecting care: Schizoaffective disorder Social determinants of health: n history mental History obtained from others: none Consults: none MDM Narrative: Patient was hemodynamically stable, afebrile and nontoxic-appearing. Exam with likely folliculitis noted to the shaft of the penis. The patient does shave and this is consistent with likely local inflammatory process. Give doxycycline prophylactically. I considered the following differential diagnosis: Abscess, necrotizing fasciitis, cellulitis, Folliculitis, syphilis, Haemophilus ducreyi, HIV, GC/chlamydia Exam consistent with likely folliculitis. The area was painful and red not consistent with chancre however I did obtain labs including syphilis testing, HIV testing gonorrhea chlamydia testing The patient and/or family, caregivers express understanding. The patient and/or family, caregivers agrees with the plan. Shared decision making: I will have a discussion with the patient and or visitors regarding risk/benefits of further testing or admission. They will be made aware of of the risk/benefits inherent in this decision they will be given the opportunity to voice understanding. Total critical care time today provided was at least 0 minutes. This excludes separately billable procedures. Critical care time (if documented) is secondary to the patient having high probability of clinically significant/life threatening deterioration in the patient's condition which required my urgent intervention. Impression: 1. folliculitis 2. genital lesion Dispo: dc This note was generated with [employer] dictation software. It may contain incorrect words, spelling, and punctuation that were not noted in review of the chart prior to signing. Discharge Plan Triage Chief Complaint: Abscess ED Provider: Tu Sharma Dx/Rx/DC Orders Instructions: ED Folliculitis Prescriptions: New doxycycline monohydrate 100 mg capsule 100 mg PO BID Qty: 14 0RF doxycycline hyclate 100 mg capsule 100 mg PO BID Qty: 14 0RF No Action multivitamin with folic acid [Daily-Alfonzo (with folic acid)] 400 mcg tablet PO loratadine 10 mg tablet PO fluticasone propionate 50 mcg/actuation spray,suspension intranasal omeprazole 20 mg capsule,delayed release(DR/EC) PO gabapentin 300 mg capsule PO docusate sodium 100 mg capsule PO ascorbic acid (vitamin C) 500 mg tablet PO clonidine HCl 0.2 mg tablet PO BID famotidine 40 mg tablet 40 mg PO DAILY omega-3 fatty acids 1,000 mg capsule PO clonidine HCl 0.1 mg tablet PO DAILY [place] 200 mg-300 mg- 100 mg-1,000 mg capsule PO DAILY quetiapine 50 mg tablet 50 mg PO QAM Qty: 30 2RF cariprazine 3 mg capsule 3 mg PO DAILY Qty: 30 2RF quetiapine 100 mg tablet 100 mg PO QHS 30 Days Qty: 30 2RF lithium carbonate 300 mg capsule See Rx Instructions .ROUTE .COMPLEX Qty: 90 2RF Dose Instruction: TAKE ONE CAPSULE BY MOUTH THREE TIMES DAILY Rx Instructions: TAKE ONE CAPSULE BY MOUTH THREE TIMES DAILY lamotrigine 200 mg tablet 200 mg PO DAILY 30 Days Qty: 30 2RF paroxetine HCl 40 mg tablet 40 mg PO QHS Qty: 30 2RF Primary Care Provider: Francisco Perry Chi Referrals: Francisco Perry Chi, MD [Primary Care Provider] - Activity Restrictions/Additional Instructions: Thank you for trusting us with your care today! Please take antibiotics until course completed. Please take Tylenol (2 pills, 650 mg), ibuprofen (2 pills, 400 mg) every 6 hours as needed for pain and fever control. Please return to the emergency department if your symptoms change or worsen. Specific if he cannot take antibiotics in mouth or redness or pain worsens. Please follow with your primary care physician for further outpatient evaluation and management. Print Language: Citizen Of [place] Disposition Disposition: Home, Self Care
--- NOTE | 2023-10-14 22:15 | ED.RN ---
CONSENT TO TREAT OBTAINED FROM NICHELLE NICHOLSON. VERIFIED BY NAVARRO MOORE
[2023-10-14] MEDS: Doxycycline 100 MG CAPSULE PO (22:54)
[2023-10-14 23:06] VITALS: BP 122/72; PULSE 74; RESP 14; TEMP 36.1; O2SAT 96
[2023-10-15 00:11] LABS: HIV - WCH Non-Reactive (Nonreactive); Syphilis Antibodies Non-reactive
== END 2023-10-14 23:07 | disposition home or self-care (01) ==
PROVIDERS: Emergency Provider Emergency Medicine; PCP Family Medicine Geriatric Medicine; Visit Provider Emergency Medicine
DX: L73.9 Follicular disorder, unspecified (principal); F25.9 Schizoaffective disorder, unspecified; F17.200 Nicotine dependence, unspecified, uncomplicated; Z79.899 Other long term (current) drug therapy
CPT/HCPCS: 86703; 86780; 87491; 87591; 99282

== ENCOUNTER → 2023-11-09 | Outpatient (CLI) | payer MEDICAID, SELFPAY ==
[2023-11-09 12:24] LABS: Absolute Lymphocyte Count 2.09 X10^3/uL (0.83-4.51); Absolute Neutrophil Count 4.4 X10^3/uL (2.0-7.7); Basophil# 0.05 X10^3/uL; Basophil% 0.7 % (0-1); Eosinophil# 0.27 X10^3/uL; Eosinophils% 3.7 % (0-5); Hematocrit 45.2 % (40-54); Hemoglobin 14.4 g/dL (13.0-16.5); Lymphocyte # 2.09 X10^3/ul (0.83-4.51); Lymphocyte % 28.7 % (19-41); Mean Corp Hgb Conc 31.9 g/dL (32-36); Mean Corpuscular Hgb 28.2 pg (27.0-32.0); Mean Corpuscular Volume 88.5 fL (80-94); Mean Platelet Vol. 11.3 fl (6.2-12.0); Monocyte# 0.47 X10^3/uL; Monocyte% 6.5 % (0-10); NRBC Flagged by Analyzer 0 % (0-5); Neutrophil # 4.37 X10^3/uL (2.7-7.7); Platelet Count 204 K/mm3 (150-450); RBC Distribution Width CV 13.5 % (11.6-14.6); RBC Distribution Width SD 43.8 fl (35.1-43.9); Red Blood Count 5.11 M/mm3 (4.6-6.2); White Blood Count 7.3 K/mm3 (4.4-11.0)
[2023-11-09 13:01] LABS: ALB/GLOB Ratio 0.9 RATIO (0.9-2.4); AST(SGOT) 27 U/L (15-37); Alanine Aminotransfer ALT/SGPT 36 U/L (16-61); Albumin, Serum 3.4 g/dL (3.2-5.0); Alkaline Phosphatase 122 U/L (45-117); Anion Gap 3 (5-15); BUN 10 mg/dL (7-18); BUN/Creat Ratio 10.4 RATIO (10-20); Calcium,Total 9.2 mg/dL (8.5-10.1); Chloride 106 mmol/L (98-107); Cholesterol 256 mg/dL (200); Creatinine, Serum 0.96 mg/dL (0.70-1.30); EST Glomerular Filtration Rate 94 mL/min (>60); Est Glom Filt Rate - Afr Amer 113 mL/min (>60); Globulin 3.8 g/dL (2.2-4.2); Glucose 256 mg/dL (74-106); High Density Lipoprotein 36 mg/dL; Potassium 4.4 mmol/L (3.5-5.1); Protein, Total 7.2 g/dL (6.4-8.2); Sodium Level 135 mmol/L (136-145); Thyroid Stim Hormone (TSH) 0.76 uIU/mL (0.358-3.74); Triglycerides 557 mg/dL
== END | disposition home or self-care (01) ==
LOC: POLAB3 11:50
PROVIDERS: PCP Family Medicine Geriatric Medicine; Visit Provider Family Medicine Geriatric Medicine
DX: R53.83 Other fatigue (principal); E78.5 Hyperlipidemia, unspecified
CPT/HCPCS: 36415; 80053; 80061; 84443; 85025

== ENCOUNTER 2023-11-25 16:11 | Emergency (ER) | payer MEDICAID, SELFPAY ==
[2023-11-25 16:12] VITALS: BP 127/87; PULSE 90; RESP 16; TEMP 36.4; O2SAT 97; BMI 36.1
--- NOTE | 2023-11-25 16:43 | EDS_ITS ---
HPI History of Present Illness Chief Complaint: Other, Pain/Inj Informant: patient and other Narrative Narrative: Patient here with staff member from [facility]. Intermittent bleeding per rectum. Deals with constipation and hard stools. States when he strains hard stools, would notice blood. Had that today. No abdominal pain. No anticoagulants. He has been told he had hemorrhoids in the past and tried using cortisone cream. Prior similar symptoms: Yes [facility] Medical History Medication monitoring encounter Schizoaffective disorder Arthritis Home Medications ?Medication ?Instructions ?Recorded ?Last Taken ?Type ascorbic acid (vitamin C) 500 mg PO 01/18/23 Unknown History tablet clonidine HCl 0.1 mg tablet mg PO DAILY 01/18/23 Unknown History clonidine HCl 0.2 mg tablet mg PO BID 01/18/23 Unknown History docusate sodium 100 mg capsule mg PO 01/18/23 Unknown History famotidine 40 mg tablet 40 mg PO DAILY 01/18/23 Unknown History fluticasone propionate 50 intranasal 01/18/23 Unknown History mcg/actuation nasal spray,suspension gabapentin 300 mg capsule mg PO 01/18/23 Unknown History loratadine 10 mg tablet mg PO 01/18/23 Unknown History multivitamin with folic acid 400 tab PO 01/18/23 Unknown History mcg tablet (Daily-Alfonzo (with folic acid)) omega-3 fatty acids 1,000 mg mg PO 01/18/23 Unknown History capsule omega3-dha 200 mg-epa 300 mg-othr cap PO DAILY 01/18/23 Unknown History om3 100 mg-fish oil 1,000 mg capsule ([place]) omeprazole 20 mg capsule,delayed mg PO 01/18/23 Unknown History release quetiapine 50 mg tablet 50 mg PO QAM #30 tabs 05/15/23 Unknown Rx lamotrigine 200 mg tablet 200 mg PO DAILY 30 days #30 tabs 09/25/23 Unknown Rx lithium carbonate 300 mg capsule See Rx Instructions .Route 09/25/23 Unknown Rx .COMPLEX #90 caps paroxetine HCl 40 mg tablet 40 mg PO QHS #30 tabs 09/25/23 Unknown Rx doxycycline hyclate 100 mg capsule 100 mg PO BID #14 caps 10/14/23 Unknown Rx doxycycline monohydrate 100 mg 100 mg PO BID #14 CAPSULES 10/14/23 Unknown Rx capsule cariprazine 3 mg capsule 3 mg PO DAILY #30 caps 10/19/23 Unknown Rx quetiapine 100 mg tablet 100 mg PO QHS 30 days #30 tabs 10/19/23 Unknown Rx docusate sodium 100 mg capsule 100 mg PO DAILY #30 caps 11/25/23 Unknown Rx (Colace) Allergy/AdvReac Type Severity Reaction Status Date / Time coconut Allergy Mild PT UNSURE Verified 10/14/23 21:26 OF REACTION varenicline (From Chantix) Allergy Mild PT UNSURE Verified 10/14/23 21:26 OF REACTION Social History Smoking Status: Light Smoker (<10/day) alcohol intake: never substance use type: does not use ROS ROS ED Constitutional Constitutional ED: Denies chills, fever(s) or sweats Eyes Eyes: Denies change in vision ENT ENT ED: Denies dysphagia or sore throat Cardiovascular Cardiovascular: Denies chest pain, leg edema, palpitations or racing heartbeat Respiratory/Chest Respiratory/Chest: Denies cough, dyspnea or dyspnea on exertion Gastrointestinal Gastrointestinal: Reports other Details: Blood in the stool ; Denies abdominal pain, diarrhea, nausea or vomiting Genitourinary Genitourinary ED: Denies dysuria, hematuria or urinary frequency Musculoskeletal Musculoskeletal: Denies back pain, extremity pain or neck pain Integumentary Denies rash or wounds Neurologic Neurologic: Denies headache(s), paresthesias or weakness EXAM Physical Exam Const Vital Signs: 11/25/23 16:12 Temperature 97.6 F L Temperature Source Temporal Pulse Rate 90 Respiratory Rate 16 Blood Pressure 127/87 H Blood Pressure Mean 100 Pulse Ox 97 Oxygen Delivery Method Room Air Positive well nourished and well developed General Appearance ED: well developed and NAD HEENT Reports moist mucous membranes normocephalic and atraumatic Eyes EOMs intact bilaterally and conjunctivae normal General Eye ED: Yes normal appearance of both eyes Neck no lymphadenopathy and supple General: Negative for tenderness Chest Wall Chest: Negative for tenderness Resp normal respiratory effort and normal air movement Effort and Inspection: symmetric chest movement; Negative for respiratory distress Cardio regular rate, regular rhythm and no murmurs Peripheral Pulses: pulses 2+ throughout GI normal to inspection, nondistended, normoactive bowel sounds and non-tender GI Narrative: Rectal exam: Nonthrombosed small posterior external hemorrhoid nonbleeding. Tender small fissure anteriorly nonbleeding. No gross blood noted. Palpation: Negative for guarding or rebound tenderness present Back/Spine no CVA tenderness and no thoracic nor lumbar tenderness Extremity normal to inspection General Extremety ED: Negative for edema or tenderness General Extremity: Negative for edema Neuro oriented x3 and no sensory deficits noted Sensorium / Orientation: awake and alert Skin no rashes or lesions noted and no wounds MDM MDM MDM Narrative Medical decision making narrative: Interventions / MDM: Differential diagnosis: External hemorrhoid, rectal fissure, rectal bleed Diagnosis considered but do not suspect: No abdominal obtain for concerns for colitis. My EKG interpretation: N/A Imaging independently reviewed and interpreted by myself: N/A External documents reviewed: N/A Test considered but not ordered:N/A ED course: Vital stable nontoxic nontender abdomen. Rectal exam small external hemorrhoid nonbleeding. Also small fissure. With his history of likely fissure issues discussed this with patient and staff member. He is placed on a stool softener daily. Outpatient follow-up. Do not feel any testing is necessary. All questions were answered. Re-evaluation: stable Disposition discussed with patient/family/significant other: Patient and staff member Case discussed with consulting clinician: N/A This note was generated with [employer] dictation software. It may contain incorrect words, spelling, and punctuation that were not noted in checking the note before signing. Discharge Plan Triage Chief Complaint: Other, Pain/Inj ED Provider: Wilder Alan Dx/Rx/DC Orders Clinical Impression: Rectal bleed, Hemorrhoid, Rectal fissure Instructions: ED Understanding Anal Fissures Prescriptions: New docusate sodium [Colace] 100 mg capsule 100 mg PO DAILY Qty: 30 0RF No Action multivitamin with folic acid [Daily-Alfonzo (with folic acid)] 400 mcg tablet PO loratadine 10 mg tablet PO fluticasone propionate 50 mcg/actuation spray,suspension intranasal omeprazole 20 mg capsule,delayed release(DR/EC) PO gabapentin 300 mg capsule PO docusate sodium 100 mg capsule PO ascorbic acid (vitamin C) 500 mg tablet PO clonidine HCl 0.2 mg tablet PO BID famotidine 40 mg tablet 40 mg PO DAILY omega-3 fatty acids 1,000 mg capsule PO clonidine HCl 0.1 mg tablet PO DAILY [place] 200 mg-300 mg- 100 mg-1,000 mg capsule PO DAILY doxycycline monohydrate 100 mg capsule 100 mg PO BID Qty: 14 0RF doxycycline hyclate 100 mg capsule 100 mg PO BID Qty: 14 0RF quetiapine 50 mg tablet 50 mg PO QAM Qty: 30 2RF lithium carbonate 300 mg capsule See Rx Instructions .ROUTE .COMPLEX Qty: 90 2RF Dose Instruction: TAKE ONE CAPSULE BY MOUTH THREE TIMES DAILY Rx Instructions: TAKE ONE CAPSULE BY MOUTH THREE TIMES DAILY lamotrigine 200 mg tablet 200 mg PO DAILY 30 Days Qty: 30 2RF paroxetine HCl 40 mg tablet 40 mg PO QHS Qty: 30 2RF quetiapine 100 mg tablet 100 mg PO QHS 30 Days Qty: 30 2RF cariprazine 3 mg capsule 3 mg PO DAILY Qty: 30 2RF Primary Care Provider: Francisco Perry Chi Referrals: Francisco Perry Chi, MD [Primary Care Provider] - 1-2 Weeks Activity Restrictions/Additional Instructions: Nonbleeding small hemorrhoid seen exam history concerning for fissure with constipation issues. Take stool softener as prescribed. Follow-up your doctor continue medications and reevaluation. Print Language: [place] Island[place] Disposition Disposition: Home, Self Care Discharge Date/Time: 11/25/23 16:50
== END 2023-11-25 16:50 | disposition home or self-care (01) ==
PROVIDERS: Emergency Provider Emergency Medicine; PCP Family Medicine Geriatric Medicine; Visit Provider Emergency Medicine
DX: K62.5 Hemorrhage of anus and rectum (principal); F25.9 Schizoaffective disorder, unspecified; F17.200 Nicotine dependence, unspecified, uncomplicated; K64.9 Unspecified hemorrhoids; Z79.899 Other long term (current) drug therapy; K60.2 Anal fissure, unspecified
CPT/HCPCS: 99282

== ENCOUNTER 2024-01-20 21:14 | Emergency (ER) | payer MEDICAID, SELFPAY ==
[2024-01-20 21:15] VITALS: BP 150/99; PULSE 78; RESP 16; TEMP 37; O2SAT 99; BMI 36.6
--- NOTE | 2024-01-20 21:50 | RAD_ITS ---
STUDY: X-RAY CHEST REASON FOR EXAM: Male, 38 years old. cough TECHNIQUE: PA and lateral views of the chest. COMPARISON: 05/04/2021 FINDINGS: The lungs are clear and expanded. There is no demonstrated pleural abnormality. Normal size heart. Normal mediastinum and jose. Normal visualized pulmonary arteries. Normal visualized aortic arch and descending thoracic aorta. Normal visualized thoracic spine. Normal visualized ribs, clavicles, and shoulders. There is no demonstrated abnormality of the visualized soft tissue structures of the upper abdomen. RAD/Chest PA and Lateral IMPRESSION: Normal x-ray examination of the chest. Electronically Signed: Uvaldo Stokes MD at 22:54 EDT ,
--- NOTE | 2024-01-20 21:51 | EDS_ITS ---
HPI History of Present Illness Chief Complaint: Cough Informant: patient and other (assisted staff member) Narrative Narrative: 1 week history of productive cough no fevers or chills. Tobacco history. Brought in from longterm. History of schizoaffective disorder. Denies vomiting diarrhea. States today cough little bit blood. No dyspnea. Staff member states he is prescribed inhaler however unclear if diagnosed with any asthma. Denies any wheeze. [facility] Medical History Medication monitoring encounter Schizoaffective disorder Arthritis Home Medications ?Medication ?Instructions ?Recorded ?Last Taken ?Type clonidine HCl 0.2 mg tablet 0.2 mg PO BID 01/18/23 Unknown History famotidine 40 mg tablet 40 mg PO DAILY 01/18/23 Unknown History multivitamin with folic acid 400 1 tab PO DAILY 01/18/23 Unknown History mcg tablet (Daily-Alfonzo (with folic acid)) omega3-dha 200 mg-epa 300 mg-othr 1 cap PO DAILY 01/18/23 Unknown History om3 100 mg-fish oil 1,000 mg capsule ([place]) ascorbic acid (vitamin C) 500 mg 500 mg PO DAILY 12/05/23 Unknown History tablet clonidine HCl 0.1 mg tablet 0.1 mg PO QAM 12/05/23 Unknown History docusate sodium 100 mg capsule 100 mg PO BID 12/05/23 Unknown History fluticasone propionate 50 2 spray intranasal DAILY 12/05/23 Unknown History mcg/actuation nasal spray,suspension gabapentin 300 mg capsule 300 mg PO QHS 12/05/23 Unknown History hydrocortisone 1 % topical cream 1 applic topical BID 12/05/23 Unknown History loratadine 10 mg tablet 10 mg PO DAILY 12/05/23 Unknown History omeprazole 20 mg capsule,delayed 40 mg PO DAILY 12/05/23 Unknown History release lamotrigine 200 mg tablet 200 mg PO DAILY 30 days #30 tabs 12/15/23 Unknown Rx lithium carbonate 300 mg capsule See Rx Instructions .Route 12/15/23 Unknown Rx .COMPLEX #90 caps paroxetine HCl 40 mg tablet 40 mg PO QHS #30 tabs 12/15/23 Unknown Rx quetiapine 50 mg tablet 50 mg PO QHS 30 days #30 tabs 12/18/23 Unknown Rx cariprazine 3 mg capsule 3 mg PO DAILY #30 caps 01/09/24 Unknown Rx polyethylene glycol 3350 17 17 g PO DAILY 01/20/24 Unknown History gram/dose oral powder Allergy/AdvReac Type Severity Reaction Status Date / Time coconut Allergy Mild PT UNSURE Verified 01/20/24 21:16 OF REACTION varenicline (From Chantix) Allergy Mild PT UNSURE Verified 01/20/24 21:16 OF REACTION Social History Smoking Status: Light Smoker (<10/day) alcohol intake: never substance use type: does not use ROS ROS ED Constitutional Constitutional ED: Denies chills, fever(s) or sweats Eyes Eyes: Denies change in vision ENT ENT ED: Denies dysphagia or sore throat Cardiovascular Cardiovascular: Denies chest pain, leg edema, palpitations or racing heartbeat Respiratory/Chest Respiratory/Chest: Reports cough; Denies dyspnea or dyspnea on exertion Gastrointestinal Gastrointestinal: Denies abdominal pain, diarrhea, nausea or vomiting Genitourinary Genitourinary ED: Denies dysuria, hematuria or urinary frequency Musculoskeletal Musculoskeletal: Denies back pain, extremity pain or neck pain Integumentary Denies rash or wounds Neurologic Neurologic: Denies headache(s), paresthesias or weakness EXAM Physical Exam Const Vital Signs: 01/20/24 21:15 01/20/24 22:06 01/20/24 23:09 Temperature 98.6 F 97.1 F L Temperature Source Oral Pulse Rate 78 65 Respiratory Rate 16 20 H Respiratory Effort Normal Non-Labored Respiratory Depth Normal Respiratory Pattern Irregular Blood Pressure 150/99 H 121/65 H Blood Pressure Mean 116 83 Pulse Ox 99 94 Oxygen Delivery Method Room Air Room Air Positive well nourished and well developed General Appearance ED: well developed and NAD HEENT Reports moist mucous membranes HEENT Narrative: No posterior pharyngeal erythema. normocephalic and atraumatic Eyes EOMs intact bilaterally and conjunctivae normal General Eye ED: Yes normal appearance of both eyes Neck no lymphadenopathy and supple General: Negative for tenderness Chest Wall Chest: Negative for tenderness Resp normal air movement Resp Narrative: Mild coarse sounds bilaterally. No wheezing. Effort and Inspection: symmetric chest movement; Negative for respiratory distress Cardio regular rate, regular rhythm and no murmurs Peripheral Pulses: pulses 2+ throughout GI normal to inspection, nondistended, normoactive bowel sounds and non-tender Palpation: Negative for guarding or rebound tenderness present Back/Spine no CVA tenderness and no thoracic nor lumbar tenderness Extremity normal to inspection General Extremety ED: Negative for edema or tenderness General Extremity: Negative for edema Neuro oriented x3 and no sensory deficits noted Sensorium / Orientation: awake and alert Skin no rashes or lesions noted and no wounds MDM MDM MDM Narrative Medical decision making narrative: Interventions / MDM: Differential diagnosis: Bronchitis, tobacco history Diagnosis considered but do not suspect: Pneumonia however x-ray negative. Pulmonary embolism however no dyspnea or hypoxia. My EKG interpretation: N/A Imaging independently reviewed and interpreted by myself: 2 view chest x-ray: No acute process also read by radiology. External documents reviewed: N/A Test considered but not ordered:N/A ED course: Vital stable, nontoxic. 99% room air. COVID influenza RSV sent. Two-view chest x-ray ordered for further evaluation. 2300: COVID, influenza, RSV negative. Chest x-ray negative. Discussed viral bronchitis symptoms. Tobacco cessation discussed. Discussed using inhaler as needed. Discussed return precautions. All questions were answered. Re-evaluation: stable Disposition discussed with patient/family/significant other: Patient and staff member. Case discussed with consulting clinician: N/A This note was generated with [employer] dictation software. It may contain incorrect words, spelling, and punctuation that were not noted in checking the note before signing. Radiography Diagnostic Testing: Clinical Impression(s) from Imaging Studies Chest X-Ray 01/20/24 21:50 IMPRESSION: Normal x-ray examination of the chest. Electronically Signed: Uvaldo Stokes MD at 22:54 EDT , Discharge Plan Triage Chief Complaint: Cough ED Provider: Wilder Alan Dx/Rx/DC Orders Clinical Impression: Bronchitis, Tobacco dependence Instructions: ED Bronchitis, No Antibiotic (Adult) Prescriptions: No Action multivitamin with folic acid [Daily-Alfonzo (with folic acid)] 400 mcg tablet 1 tab PO DAILY clonidine HCl 0.2 mg tablet 0.2 mg PO BID famotidine 40 mg tablet 40 mg PO DAILY [place] 200 mg-300 mg- 100 mg-1,000 mg capsule 1 cap PO DAILY loratadine 10 mg tablet 10 mg PO DAILY omeprazole 20 mg capsule,delayed release(DR/EC) 40 mg PO DAILY ascorbic acid (vitamin C) 500 mg tablet 500 mg PO DAILY docusate sodium 100 mg capsule 100 mg PO BID fluticasone propionate 50 mcg/actuation spray,suspension 2 spray intranasal DAILY gabapentin 300 mg capsule 300 mg PO QHS hydrocortisone 1 % cream 1 applic topical BID clonidine HCl 0.1 mg tablet 0.1 mg PO QAM quetiapine 50 mg tablet 50 mg PO QHS 30 Days Qty: 30 2RF polyethylene glycol 3350 17 gram/dose powder 17 g PO DAILY paroxetine HCl 40 mg tablet 40 mg PO QHS Qty: 30 2RF lamotrigine 200 mg tablet 200 mg PO DAILY 30 Days Qty: 30 2RF lithium carbonate 300 mg capsule See Rx Instructions .ROUTE .COMPLEX Qty: 90 2RF Dose Instruction: TAKE ONE CAPSULE BY MOUTH THREE TIMES DAILY Rx Instructions: TAKE ONE CAPSULE BY MOUTH THREE TIMES DAILY cariprazine 3 mg capsule 3 mg PO DAILY Qty: 30 2RF Primary Care Provider: Francisco Perry Chi Referrals: Francisco Perry Chi, MD [Primary Care Provider] - 1 Week Activity Restrictions/Additional Instructions: COVID, influenza, RSV negative. Chest x-ray negative. Use inhaler as needed for wheezing starts. Symptoms worsen not controlled with inhaler, return to the ED for reevaluation. Print Language: Cymraes Disposition Disposition: Home, Self Care Discharge Date/Time: 01/20/24 23:12
[2024-01-20 23:09] VITALS: BP 121/65; PULSE 65; RESP 20; TEMP 36.2; O2SAT 94
== END 2024-01-20 23:12 | disposition home or self-care (01) ==
PROVIDERS: Emergency Provider Emergency Medicine; PCP Family Medicine Geriatric Medicine; Visit Provider Emergency Medicine
DX: J40 Bronchitis, not specified as acute or chronic (principal); F25.9 Schizoaffective disorder, unspecified; F17.200 Nicotine dependence, unspecified, uncomplicated; Z79.899 Other long term (current) drug therapy
CPT/HCPCS: 71046; 87631; 99282

== ENCOUNTER → 2024-01-29 | Outpatient (CLI) | payer MEDICAID, SELFPAY | END | disposition home or self-care (01) | LOC: POLAB3 16:11 | PROVIDERS: PCP Family Medicine Geriatric Medicine; Visit Provider Family Medicine Geriatric Medicine | DX: R68.83 Chills (without fever) (principal) | CPT/HCPCS: 87631 ==

== ENCOUNTER → 2024-07-18 | Outpatient (CLI) | payer MEDICAID, SELFPAY ==
[2024-07-18 13:09] LABS: Absolute Lymphocyte Count 2.48 X10^3/uL (0.83-4.51); Basophil# 0.05 X10^3/uL; Basophil% 0.5 % (0-1); Eosinophil# 0.24 X10^3/uL; Eosinophils% 2.6 % (0-5); Hematocrit 44.6 % (40-54); Hemoglobin 14.2 g/dL (13.0-16.5); Lymphocyte # 2.48 X10^3/ul (0.83-4.51); Lymphocyte % 26.6 % (19-41); Mean Corp Hgb Conc 31.8 g/dL (32-36); Mean Platelet Vol. 11.7 fl (6.2-12.0); Monocyte# 0.58 X10^3/uL; Monocyte% 6.2 % (0-10); NRBC Flagged by Analyzer 0 % (0-5); Neutrophil # 5.97 X10^3/uL (2.7-7.7); Neutrophil % 63.9 % (47-70); Platelet Count 232 K/mm3 (150-450); RBC Distribution Width CV 14.3 % (11.6-14.6); RBC Distribution Width SD 43.8 fl (35.1-43.9); Red Blood Count 5.25 M/mm3 (4.6-6.2); White Blood Count 9.3 K/mm3 (4.4-11.0)
[2024-07-18 14:33] LABS: ALB/GLOB Ratio 1.4 RATIO (0.9-2.4); AST(SGOT) 21 U/L (<=37); Alanine Aminotransfer ALT/SGPT 28 U/L (<=46); Albumin, Serum 4.2 g/dL (3.5-5.0); Alkaline Phosphatase 142 U/L (40-129); Anion Gap 10 (5-15); BUN 9 mg/dL (4-19); BUN/Creat Ratio 10.1 RATIO (10-20); Calcium,Total 10.3 mg/dL (7.6-11.0); Carbon Dioxide 25.1 mmol/L (21.0-32.0); Chloride 105 mmol/L (98-108); Cholesterol 280 mg/dL (<=200); Creatinine, Serum 0.85 mg/dL (0.70-1.20); EST Glomerular Filtration Rate 115 (>60); Glucose 178 mg/dL (70-99); High Density Lipoprotein 43 mg/dL; Low Density Lipoprotein Calc. 144 mg/dL; Potassium 4.1 mmol/L (3.3-5.1); Protein, Total 7.2 g/dL (5.9-8.4); Sodium Level 140 mmol/L (133-145); Thyroid Stim Hormone (TSH) 0.925 uIU/mL (0.300-4.200); Total Bilirubin 0.19 mg/dL (0.00-1.30); Triglycerides 465 mg/dL; Very Low Density Lipoprotein 93 mg/dL (5-40); cholesterol:hdl ratio screen 6.47
== END | disposition home or self-care (01) ==
LOC: LAB 11:58
PROVIDERS: PCP Family Medicine Geriatric Medicine; Referring Provider Family Medicine Geriatric Medicine; Visit Provider Family Medicine Geriatric Medicine
DX: E78.5 Hyperlipidemia, unspecified (principal); R53.83 Other fatigue
CPT/HCPCS: 36415; 80053; 80061; 84443; 85025

== ENCOUNTER → 2024-08-12 | Outpatient (CLI) | payer MEDICAID, SELFPAY ==
[2024-08-12 10:29] LABS: Hemoglobin A1c 7.6 % (<=5.6)
[2024-08-12 12:17] LABS: Lithium 0.51 mmol/L (0.60-1.20)
== END | disposition home or self-care (01) ==
LOC: LAB 08:27
PROVIDERS: Student in an Organized Health Care Education/Training Program; PCP Family Medicine Geriatric Medicine; Referring Provider Family Medicine Geriatric Medicine; Visit Provider Family Medicine Geriatric Medicine
DX: R73.09 Other abnormal glucose (principal)
CPT/HCPCS: 36415; 80178; 83036

== ENCOUNTER → 2024-09-05 | Outpatient (CLI) | payer MEDICAID, SELFPAY | END | disposition home or self-care (01) | LOC: SL 20:29 | PROVIDERS: PCP Family Medicine Geriatric Medicine; Referring Provider Family Medicine Geriatric Medicine; Visit Provider Family Medicine Geriatric Medicine | DX: R06.83 Snoring (principal); F51.3 Sleepwalking [somnambulism] | CPT/HCPCS: 95811 ==

== ENCOUNTER → 2024-10-07 | Outpatient (CLI) | payer MEDICAID, SELFPAY | END | disposition home or self-care (01) | LOC: SL 08:45 | PROVIDERS: PCP Family Medicine Geriatric Medicine; Visit Provider Nurse Practitioner Acute Care | DX: Z46.89 Encounter for fitting and adjustment of other specified devices (principal) ==

== ENCOUNTER → 2024-11-12 | Outpatient (CLI) | payer MEDICAID, SELFPAY ==
[2024-11-12 11:43] LABS: Hematocrit 44.2 % (40-54); Hemoglobin 14.3 g/dL (13.0-16.5); Immature Granulocytes Count 0.030 X10^3/uL (0.0-0.0); Mean Corp Hgb Conc 32.4 g/dL (32-36); Mean Corpuscular Volume 81.3 fL (80-94); Mean Platelet Vol. 10.9 fl (6.2-12.0); NRBC Flagged by Analyzer 0 % (0-5); Platelet Count 214 K/mm3 (150-450); RBC Distribution Width CV 14.7 % (11.6-14.6); RBC Distribution Width SD 43.3 fl (35.1-43.9); Red Blood Count 5.44 M/mm3 (4.6-6.2); White Blood Count 9.6 K/mm3 (4.4-11.0)
[2024-11-12 13:17] LABS: AST(SGOT) 28 U/L (<=37); Alanine Aminotransfer ALT/SGPT 36 U/L (<=46); Albumin, Serum 4.0 g/dL (3.5-5.0); Alkaline Phosphatase 150 U/L (40-129); Anion Gap 16 (5-15); BUN 8 mg/dL (4-19); BUN/Creat Ratio 10.7 RATIO (10-20); Calcium,Total 9.8 mg/dL (7.6-11.0); Carbon Dioxide 20.3 mmol/L (21.0-32.0); Chloride 103 mmol/L (98-108); Cholesterol 299 mg/dL (<=200); Globulin 3.1 g/dL (2.2-4.2); Glucose 196 mg/dL (70-99); Low Density Lipoprotein Calc. 148 mg/dL; Potassium 3.9 mmol/L (3.3-5.1); Triglycerides 539 mg/dL; Very Low Density Lipoprotein 108 mg/dL (5-40); cholesterol:hdl ratio screen 6.89
[2024-11-12 19:20] LABS: Xtra Tube Kwok EXTRA TUBE
== END | disposition home or self-care (01) ==
LOC: POLAB3 11:15
PROVIDERS: PCP Family Medicine Geriatric Medicine; Visit Provider Family Medicine Geriatric Medicine
DX: R73.09 Other abnormal glucose (principal); E78.5 Hyperlipidemia, unspecified; R53.83 Other fatigue
CPT/HCPCS: 36415; 80053; 80061; 83036; 84443; 85025

== ENCOUNTER → 2025-01-14 | Outpatient (CLI) | payer MEDICAID, SELFPAY | END | disposition home or self-care (01) | LOC: SL 09:41 | PROVIDERS: PCP Family Medicine Geriatric Medicine; Visit Provider Nurse Practitioner Acute Care | DX: G47.33 Obstructive sleep apnea (adult) (pediatric) (principal) | CPT/HCPCS: 98960; G0463 ==